=== PATIENT | male | born 1995 | race Hispanic/Latino ===

== ENCOUNTER 2019-05-18 08:13 | Emergency (ER) | payer OTHER ==
[~2019-05-18] VITALS: Ht 165.1 cm; Wt 78.2 kg
--- NOTE | 2019-05-18 09:10 | REP ---
Right ankle series: Four views. History: Twisting injury. Findings: Four views right ankle demonstrate intact ankle mortise. No fracture is seen. Soft tissues are unremarkable. Impression: Negative radiographs of the right ankle. Electronically Signed by Tobias Evans MD 05/18/2019 09:03 A
[2019-05-18] MEDS ORDERED: KETOROLAC 60 MG/2 ML VIAL (J1885) IM ONE (09:15)
[2019-05-18] MEDS ORDERED: ACETAMINOPHEN 325 MG TAB PO ONE (09:15)
--- NOTE | 2019-05-18 10:26 | REP ---
RIGHT FOOT, FOUR VIEWS: There is no evidence of an acute fracture, dislocation or intrinsic bone disease. IMPRESSION: No fracture or dislocation. Electronically Signed by Tae Thornton MD 05/18/2019 04:34 P
[2019-05-18 11:28] VITALS: BP 122/76
== END 2019-05-18 11:10 | disposition home or self-care (01) ==
LOC: M ED 08:13
DX: S93.491A Sprain of other ligament of right ankle, initial encounter (principal); X50.1XXA Overexertion from prolonged static or awkward postures, initial encounter; Y92.89 Other specified places as the place of occurrence of the external cause; Y93.02 Activity, running; Y99.1 Military activity; F17.200 Nicotine dependence, unspecified, uncomplicated
CPT/HCPCS: 73610; 73630; 96372; 99284; J1885